=== PATIENT | female | born 1975 | race Caucasian/White ===

== ENCOUNTER → 2017-01-18 | Outpatient (CLI) | payer OTHER ==
[~2017-01-18] MED LIST: INSPMPNVLG
--- NOTE | 2017-01-21 13:17 | MAMMOGRAPHY REPORT ---
BILATERAL DIGITAL SCREENING MAMMOGRAM TOMOSYNTHESIS WITH CAD: 01/18/2017 CLINICAL HISTORY: Routine screening. Baseline exam. TECHNIQUE: Breast tomosynthesis in addition to standard 2D mammography was performed. Current study was also evaluated with a Computer Aided Detection (CAD) system. COMPARISON: No prior exams were available for comparison. BREAST COMPOSITION: There are scattered areas of fibroglandular density in both breasts. FINDINGS: No suspicious masses, calcifications, or areas of architectural distortion are noted in ei ther breast. Asymmetry within the right lateral posterior breast on the cc view has the appearance o f normal fibroglandular tissue on the tomosynthesis images. IMPRESSION: ACR BI-RADS CATEGORY 2: BENIGN There is no mammographic evidence of malignancy. A 1 year screening mammogram is recommended. The pa tient will receive written notification of the results. Approximately 10% of breast cancers are not detected with mammography. A negative mammographic report should not delay biopsy if a clinically suggestive mass is present. Avelina Amor M.D. ah/:01/20/2017 14:45:46 Union Representative: Radha PARRA(Latha)(Marty), [facility] letter sent: Normal 1/2 BI-RADS Code: ACR BI-RADS Category 2: Benign
== END | disposition home or self-care (01) ==
LOC: C.MAMM 13:14
PROVIDERS: ATTEND Physician Assistant Medical
DX: Z12.31 Encounter for screening mammogram for malignant neoplasm of breast (principal)

== ENCOUNTER 2024-04-21 09:09 | Inpatient (IN) ==
[2024-04-21] MEDS: KETOROLAC TROMETHAMINE 15 MG/ML VIAL IV STA (09:35)
[2024-04-21] MEDS: ACETAMINOPHEN 1,000 MG/100 ML VIAL IV STA (09:35)
[2024-04-21] MEDS: ONDANSETRON INJ 2 MG/ML 2 ML VIAL IV STA ×2 (09:36→11:03)
[2024-04-21] MEDS: SODIUM CHLORIDE 0.9% 500 ML IV STA (09:36)
--- NOTE | 2024-04-21 09:53 | Emergency Department Note ---
Impression & Plan Acute left flank pain, UTI (urinary tract infection), Hydronephrosis, Vomiting, Leukocytosis ED Provider Note NAME: DYLLAN CASTILLO AGE: 48 SEX: F : 1975 ARRIVES VIA: Walk-In INFORMANT: [Patient] ED PROVIDER(S): [Geremias Barnhart MD] CHIEF COMPLAINT: Abdominal and flank pain HISTORY OF PRESENT ILLNESS: The patient is a 48-year-old female who presents to the ER with left side abdominal discomfort that began 2 days ago. The pain initially seemed to be in the left buttock and the left lower quadrant but then in the last 12 or so hours moved to the left flank. The pain was initially colicky but now is constant. The pain is worse to lie flat, better when she stands. The patient did have some nausea, no vomiting. There has been no diarrhea. She has had some urinary frequency/urgency but no burning or blood noticed in the urine. There has been no cough or congestion, no fever no chills. She did not fall or suffer trauma. The patient went to urgent care. There was some blood in the urine, she was referred to the ER. Of note, the patient has passed 1 previous kidney stone. PMHx/PSHx/Social Hx: See Below PHYSICAL EXAM: GENERAL: Patient is in no acute distress. Standing in the room. HEENT: No acute trauma, normocephalic atraumatic, mucous membranes moist, no nasal congestion. NECK: No stridor, no adenopathy, no meningismus, trachea is midline. LUNGS: Clear to auscultation bilaterally, no wheeze, no rhonchi, breath sounds equal. HEART: Without murmurs gallops or rubs, regular rate and rhythm. ABDOMEN: Soft, mildly tender in the left lower quadrant/pelvis. No distention. EXTREMITIES: No cyanosis, full range of motion of all the joints without pain or difficulty. NEUROLOGIC: Oriented x 3, no acute motor or sensory deficits, no focal weakness. SKIN: No jaundice, no diaphoresis. Back: No flank discomfort to percussion. DIFFERENTIAL DIAGNOSIS: Renal colic, hydronephrosis, diverticulitis, UTI, musculoskeletal pain, among others. EMERGENCY DEPARTMENT PROCEDURES: MEDICAL DECISION MAKING: There is a slight leukocytosis, this could be consistent with her pain or possibly infection. There was a normal hemoglobin and platelet count. No renal failure or significant electrolyte abnormality. No concerning liver enzyme elevation. No evidence for pancreatitis. testing was negative. Urinalysis showed findings of infection. Abdominal and pelvis CT shows a 4 mm distal left ureteral stone with hydronephrosis. On exam, the patient appeared uncomfortable. She was complaining of left flank pain. The patient received IV Tylenol and IV Toradol. She was given oral Flomax and IV saline. She received IV Zofran. Despite this regimen, she was still having pain. She received IV morphine for additional pain control however, she began vomiting. She was given additional Zofran and IV Phenergan. She received IV Dilaudid for pain control. The patient was given IV ceftriaxone as antibiotic coverage. The patient is having significant discomfort in the left flank. She is vomiting. Her pain is not controlled well here in the ED, she has a left renal stone as well as a potential UTI--I do think a hospital stay is warranted. I spoke with the patient and case management, I did speak with the on-call hospitalist. I did speak with urology. Prior/Outside records/notes reviewed: Today's outpatient urgent care notes describing her presentation, the blood in the urine and the referral to the ED Imaging/x-ray results per my interpretation: Chronic Medical/Social conditions affecting care: None Care/Management discussed with: Urology-Dr. Petersen. Case management and the on-call hospitalist. Level of care consideration(s): After review of the information above and other included data: --I believe the patient requires escalation of care to admission DISPOSITION: Admission Past Med/Surg History Problem List (Updated 04/21/24 @ 17:25 by Geremias Barnhart MD) Leukocytosis (Acute) Vomiting (Acute) Hydronephrosis (Acute) UTI (urinary tract infection) (Acute) Acute left flank pain (Acute) Encounter for pre-operative examination Acute flank pain Left ureteral calculus UTI (urinary tract infection) Hydroureteronephrosis Family history of osteoporosis Vitamin D deficiency Dyslipidemia Pelvic pain Fibroid, uterine Medical History Anemia T2DM (type 2 diabetes mellitus) History of multiple miscarriages History of renal stone Migraine Hx of ovarian cyst Surgical History H/O dilation and curettage History of cholecystectomy History of ovarian cystectomy History of tooth extraction Family History Father Diverticulitis Hypertension Mother Rheumatoid arthritis Sister No problems noted. 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 Feels Safe at Home: Yes Childhood Exposure to Second-Hand Smoke: No Diet: regular Diet Comment: regular caffeine: No during the past year weight has: decreased > 10 lbs Dental Care, Regularly: Yes Physical Activity Frequency: 3-4 Times per Week Seatbelt Use: always Sunscreen Use: Yes Assistive Devices: Contacts Allergies Allergies Allergy/AdvReac Type Severity Reaction Status Date / Time Penicillins Allergy Unknown as a child Verified 04/21/24 15:08 Sulfa (Sulfonamide Allergy Rash Verified 04/21/24 15:08 Antibiotics) Home Meds Home Medications Medication Instructions Recorded Confirmed inositol 500 mg tablet 500 mg PO DAILY 07/12/19 04/21/24 loratadine 10 mg tablet (Claritin) 10 mg PO DAILY 07/12/19 04/21/24 vitamin B complex [B 1 tab PO DAILY 07/21/19 04/21/24 Complex-Vitamin B12] cholecalciferol (vitamin D3) 125 125 mcg PO DAILY 01/28/23 04/21/24 mcg (5,000 unit) capsule folic acid 400 mcg tablet 0.4 mg PO DAILY 02/06/24 04/21/24 Previous Rx's Medication Instructions Recorded insulin degludec 100 unit/mL (3 15 unit (0.15 mL) subcut DAILY #15 05/28/23 mL) subcutaneous pen (Tresiba mL FlexTouch U-100 insulin) metformin 1,000 mg tablet 1,000 mg PO BID #180 tabs 05/28/23 blood-glucose sensor (FreeStyle #6 ea 09/16/23 Kimberli 3 Sensor device) flash glucose sensor (FreeStyle #6 ea 09/25/23 Kimberli 14 Day Sensor kit) semaglutide 2 mg/dose (8 mg/3 mL) 2 mg (0.75 mL) subcut ONCE #3 mL 01/28/24 subcutaneous pen injector (Ozempic) norgestrel 0.3 mg-ethinyl 1 tab PO DAILY #84 tabs 03/19/24 estradiol 30 mcg tablet (Dale (28)) Results & Data (ED) Vital Signs Vital Signs - 24 hr 04/21/24 09:12 04/21/24 10:22 04/21/24 12:10 Temperature 36.8 C Temperature Source Temporal Artery Scan Pulse Rate 92 H Pulse Rate [Left] 67 Pulse Rhythm [Left] Regular Pulse Strength [Left] Normal Respiratory Rate 19 19 17 Respiratory Effort / Characteristics Non-Labored Spontaneous Non-Labored Non-Labored Respiratory Depth Normal Normal Normal Respiratory Pattern Regular Regular Blood Pressure 157/96 H Blood Pressure [Left Arm] 129/73 Blood Pressure Mean 116 Blood Pressure Mean [Left Arm] 91 Blood Pressure Position Sitting Blood Pressure Position [Left Arm] Sitting Pulse Oximetry 100 98 98 Oxygen Delivery Method Room Air Room Air Room Air Sepsis Recent Fever Within 48 Hours No Sepsis New/Unexplained Change in Mental Status No Sepsis Action Taken by Nursing No Action Required 04/21/24 12:24 Temperature 36.5 C Temperature Source Temporal Artery Scan Pulse Rate Pulse Rate [Left] 98 H Pulse Rhythm [Left] Regular Pulse Strength [Left] Normal Respiratory Rate 19 Respiratory Effort / Characteristics Non-Labored Respiratory Depth Normal Respiratory Pattern Regular Blood Pressure Blood Pressure [Left Arm] 140/77 Blood Pressure Mean Blood Pressure Mean [Left Arm] 98 Blood Pressure Position Blood Pressure Position [Left Arm] Sitting Pulse Oximetry 98 Oxygen Delivery Method Room Air Sepsis Recent Fever Within 48 Hours Sepsis New/Unexplained Change in Mental Status Sepsis Action Taken by [facility] Medications Current Medication List: was personally reviewed by me Laboratory Data Attestation: I reviewed the patient's lab results. 04/21/24 09:30 04/21/24 09:30 Lab Results 04/21/24 04/21/24 Range/Units 09:30 10:28 WBC 11.95 H (4.8-10.8) K/ul RBC 4.82 (4.20-5.40) M/uL Hgb 12.8 (12.0-16.0) g/dl Hct 38.6 (37.0-47.0) % MCV 80.1 (80.0-100.0) fL MCH 26.6 (25.0-34.0) pg MCHC 33.2 (32.0-36.0) g/dL RDW Std Deviation 47.5 H (36.4-46.3) fL RDW Coeff of Rohan 16.2 H (11.5-14.5) % Plt Count 382 (130-400) K/uL MPV 8.7 L (9.4-12.4) fL Immature Gran % (Auto) 0.3 % Neut % (Auto) 77.4 % Lymph % (Auto) 17.0 % [place] % (Auto) 4.7 % Eos % (Auto) 0.3 % Baso % (Auto) 0.3 % Neut # (Auto) 9.26 H (1.40-6.50) K/uL Lymph # (Auto) 2.03 (1.20-3.40) K/uL [place] # (Auto) 0.56 (0.11-0.59) K/uL Eos # (Auto) 0.03 (0.00-0.50) K/uL Baso # (Auto) 0.04 (0.00-0.20) K/uL Immature Gran # (Auto) 0.03 (0.01-0.20) K/uL Sodium 134 L (136-145) mmol/L Potassium 3.7 (3.5-5.1) mmol/L Chloride 101 (98-107) mmol/L Carbon Dioxide 21 (21-32) mmol/L Anion Gap 12 H (3-11) BUN 13 (6-23) mg/dl Creatinine 0.96 (0.6-1.2) mg/dl Est Cr Clr Drug Dosing 66.4 ml/min Est GFR ( Amer) 80.5 ml/min Est GFR (Non-Af Amer) 69.4 ml/min BUN/Creatinine Ratio 13.5 (10-20) Glucose 93 (70-99(Fasting)) mg/dl Calcium 8.8 (8.6-10.3) mg/dl Total Bilirubin 0.3 (0.2-1.0) mg/dl AST 13 (13-39) U/L ALT 10 (7-52) U/L Alkaline Phosphatase 39 (34-104) U/L Total Protein 7.0 (6.0-8.3) gm/dl Albumin 4.2 (3.4-5.0) gm/dl Globulin 2.8 (2.5-4.0) gm/dl Albumin/Globulin Ratio 1.5 (0.9-2) Lipase 28 (11-82) U/L HCG, Qual Negative (Negative) Urine Color Yellow Urine Appearance Cloudy A (Clear) Urine pH 5.5 (4.5-7.5) Ur Specific [place] 1.028 (1.000-1.030) Urine Protein Trace H (Negative) Urine Glucose (UA) Negative (Negative) Urine Ketones 1+ H (Negative) Urine Blood 3+ H (Negative) Urine Nitrite Negative (Negative) Urine Bilirubin Negative (Negative) Urine Urobilinogen Negative (Negative) Ur Leukocyte Esterase 2+ H (Negative) Urine WBC (Auto) 21-50 H (0-5) /hpf Urine RBC (Auto) 11-20 H (0-2) /hpf U Hyaline Cast (Auto) 0-2 (0-2) /lpf U Epithel Cells (Auto) 6-10 H (0-2) /hpf Urine Bacteria (Auto) 2+ H (None Seen) Urine Mucus Present A (None Prsent) Administered Medications Acetaminophen (Acetaminophen 325 Mg Tab) 650 mg PO Q6H AMY Stop: 05/21/24 13:59 Last Admin: 04/21/24 16:57 Dose: Not Given Documented By: MARQUIS Lactated Ringer's (Lr) 1,000 mls @ 100 mls/hr IV .Q10H AMY Stop: 04/22/24 08:59 Last Admin: 04/21/24 17:07 Dose: 100 mls/hr Documented By: MARQUIS Lactated Ringer's (Lr) 1,000 mls @ 15 mls/hr IV .Q24H AMY Stop: 05/21/24 14:44 Last Infusion: 04/21/24 15:26 Dose: Infused Documented By: Admin: 04/21/24 15:18 Dose: 15 mls/hr Documented By: NICCI Insulin Aspart (Insulin Aspart Per Unit Charge) 0 units SC Q6 AMY Stop: 05/21/24 12:44 Last Admin: 04/21/24 14:06 Dose: Not Given Documented By: MARQUIS Discontinued Medications Hydromorphone HCl (Hydromorphone Inj 0.5 Mg/0.5 Ml Syr) 0.5 mg IV NOW STA Stop: 04/21/24 12:17 Last Admin: 04/21/24 12:30 Dose: 0.5 mg Documented By: [facility] Sodium Chloride (Nss) 500 mls @ 999 mls/hr IV .Q31M STA Stop: 04/21/24 09:54 Last Infusion: 04/21/24 10:07 Dose: Infused Documented By: Admin: 04/21/24 09:36 Dose: 999 mls/hr Documented By: [facility] Acetaminophen (Ofirmev) 1,000 mg in 100 mls @ 400 mls/hr IV NOW STA Stop: 04/21/24 09:38 Last Infusion: 04/21/24 09:50 Dose: Infused Documented By: Admin: 04/21/24 09:35 Dose: 400 mls/hr Documented By: [facility] Sodium Chloride (Nss) 500 mls @ 999 mls/hr IV .Q31M ONE Stop: 04/21/24 11:51 Last Infusion: 04/21/24 12:05 Dose: Infused Documented By: Admin: 04/21/24 11:32 Dose: 999 mls/hr Documented By: [facility] Ceftriaxone Sodium (Rocephin) 2,000 mg in 50 mls @ 100 mls/hr IV NOW STA Stop: 04/21/24 11:50 Last Infusion: 04/21/24 12:02 Dose: Infused Documented By: Admin: 04/21/24 11:32 Dose: 100 mls/hr Documented By: [facility] Promethazine HCl (Phenergan) 12.5 mg in 50.5 mls @ 202 mls/hr IV NOW STA Stop: 04/21/24 12:30 Last Infusion: 04/21/24 12:45 Dose: Infused Documented By: Admin: 04/21/24 12:30 Dose: 202 mls/hr Documented By: [facility] Ketorolac Tromethamine (Ketorolac Tromethamine 15 Mg/Ml Vial) 15 mg IV NOW STA Stop: 04/21/24 09:25 Last Admin: 04/21/24 09:35 Dose: 15 mg Documented By: [place] Morphine Sulfate (Morphine Sulfate 4 Mg/Ml 1 Ml Carp\Vial) 4 mg IV NOW STA Stop: 04/21/24 10:39 Last Admin: 04/21/24 11:03 Dose: 4 mg Documented By: [facility] Ondansetron HCl (Ondansetron Inj 2 Mg/Ml 2 Ml Vial) 4 mg IV NOW STA Stop: 04/21/24 09:25 Last Admin: 04/21/24 09:36 Dose: 4 mg Documented By: [place] Ondansetron HCl (Ondansetron Inj 2 Mg/Ml 2 Ml Vial) 4 mg IV NOW STA Stop: 04/21/24 12:04 Last Admin: 04/21/24 11:03 Dose: 4 mg Documented By: [place] Tamsulosin HCl (Tamsulosin Hcl 0.4 Mg Cap) 0.4 mg PO NOW ONE Stop: 04/21/24 10:36 Last Admin: 04/21/24 11:04 Dose: 0.4 mg Documented By: MARIO Imaging Data Radiologist's Impression: Abdomen Fluoroscopy 04/21/24 00:00 FL KUB CLINICAL HISTORY: LEFT STENT COMPARISON STUDY: CT of the abdomen and pelvis performed earlier today. FLUOROSCOPY TIME: 4 seconds. Ka,r: 0.70 mGy FLUOROSCOPIC IMAGES: 1 FINDINGS: Fluoroscopy was provided during left ureteral stent placement. The proximal aspect of the stent projects over the left collecting system. IMPRESSION: Fluoroscopy provided during left ureteral stent placement. ACT 112: Negative or not required by law. Electronically signed by: Jose Garcia M.D. 04/21/2024 4:15 PM Abdomen/Pelvis CT 04/21/24 09:[address] WITHOUT CONTRAST CT DOSE: 831.21 mGy.cm HISTORY: Acute left-sided flank pain left flank pain TECHNIQUE: Multiaxial CT images of the abdomen and pelvis were performed without contrast. A dose lowering technique was utilized adhering to the principles of ALARA. COMPARISON STUDY: ULTRASOUND 02/11/2024 FINDINGS: Clear lung bases. No free air. Unremarkable spleen, pancreas and adrenal glands. Cholecystectomy. A displaced clip is interposed between the right hemidiaphragm and dome of the liver. Unremarkable right kidney. There is mild left-sided hydroureteronephrosis secondary to a 4 mm obstructing calculus of the distal left ureter a few centimeters upstream to the ureterovesicular junction. Decompressed urinary bladder. 4.2 cm cystic focus of the left adnexum. Mild atherosclerosis of the iliac bifurcation. No lymphadenopathy. There is no bowel obstruction or bowel wall thickening. Trace free pelvic fluid. Noninflamed appendix. Unremarkable soft tissues. No acute fracture. IMPRESSION: 1. Mild left-sided hydroureteronephrosis secondary to an obstructing 4 mm distal left ureteral calculus. 2. No bowel obstruction or bowel wall thickening. 3. Cholecystectomy. ACT 112: Negative or not required by law. The above report was generated using voice recognition software. It may contain grammatical, syntax or spelling errors. Electronically signed by: Dimitris Garza M.D. 04/21/2024 10:21 AM Discharge Plan Visit Data Chief Complaint: Abdominal Pain Stated Complaint: L SIDE ABD AND FLANK PAIN, REF BY URGENT CARE ED Provider: Geremias Barnhart Discharge Problem: Acute left flank pain, UTI (urinary tract infection), Hydronephrosis, Vomiting, Leukocytosis Patient Disposition: Admitted As Inpatient Condition: Fair Discharge Instructions Interventions: ED Discharge Assessment Last Done: 04/21/24 13:00 Discharge Problem: UTI (urinary tract infection) Qualifiers: Urinary tract infection type: acute cystitis Hematuria presence: without hematuria Qualified Code(s): N30.00 - Acute cystitis without hematuria Hydronephrosis Qualifiers: Hydronephrosis type: with renal calculous obstruction Qualified Code(s): N13.2 - Hydronephrosis with renal and ureteral calculous obstruction Vomiting Qualifiers: Vomiting type: unspecified Nausea presence: with nausea Qualified Code(s): R 11.2 - Nausea with vomiting, unspecified Leukocytosis Qualifiers: Leukocytosis type: unspecified Qualified Code(s): D72.829 - Elevated white blood cell count, unspecified
[2024-04-21 09:54] LABS: Basophils # (auto) 0.04 K/uL (0.00-0.20); Basophils % (auto) 0.3 %; Eosinophils # (auto) 0.03 K/uL (0.00-0.50); Eosinophils % (auto) 0.3 %; Hematocrit (blood only) 38.6 % (37.0-47.0); Hemoglobin 12.8 g/dl (12.0-16.0); Immature Granulocytes # (auto) 0.03 K/uL (0.01-0.20); Immature Granulocytes % (auto) 0.3 %; Lymphocytes # (auto) 2.03 K/uL (1.20-3.40); Mean Corpuscular Hemoglobin 26.6 pg (25.0-34.0); Mean Corpuscular Hgb Conc 33.2 g/dL (32.0-36.0); Mean Corpuscular Volume 80.1 fL (80.0-100.0); Mean Platelet Volume 8.7 fL (9.4-12.4); Monocytes # (auto) 0.56 K/uL (0.11-0.59); Monocytes % (auto) 4.7 %; Neutrophils # (auto) 9.26 K/uL (1.40-6.50); Neutrophils % (auto) 77.4 %; Platelet Count 382 K/uL (130-400); RDW Coefficient of Variation 16.2 % (11.5-14.5); RDW Standard Deviation 47.5 fL (36.4-46.3); Red Blood Count 4.82 M/uL (4.20-5.40); White Blood Count 11.95 K/ul (4.8-10.8)
[2024-04-21 10:10] LABS: Pregnancy Test, Serum Negative (Negative)
[2024-04-21 10:17] LABS: Albumin Globulin Ratio 1.5 (0.9-2); Albumin Level 4.2 gm/dl (3.4-5.0); BUN Creatinine Ratio 13.5 (10-20); Bilirubin,Total 0.3 mg/dl (0.2-1.0); Calcium 8.8 mg/dl (8.6-10.3); Creatinine Clr Calc Pharmacy 66.4 ml/min; Est GFR (African American) 80.5 ml/min; Est GFR (Non-African American) 69.4 ml/min; Globulin 2.8 gm/dl (2.5-4.0); Potassium 3.7 mmol/L (3.5-5.1)
--- NOTE | 2024-04-21 10:23 | CT Scan Report ---
ABDOMEN AND PELVIS CT WITHOUT CONTRAST CT DOSE: 831.21 mGy.cm HISTORY: Acute left-sided flank pain left flank pain TECHNIQUE: Multiaxial CT images of the abdomen and pelvis were performed without contrast. A dose lo wering technique was utilized adhering to the principles of ALARA. COMPARISON STUDY: ULTRASOUND 02/11/2024 FINDINGS: Clear lung bases. No free air. Unremarkable spleen, pancreas and adrenal glands. Cholecyste ctomy. A displaced clip is interposed between the right hemidiaphragm and dome of the liver. Unremarkable right kidney. There is mild left-sided hydroureteronephrosis secondary to a 4 mm obstruc ting calculus of the distal left ureter a few centimeters upstream to the ureterovesicular junction. Decompressed urinary bladder. 4.2 cm cystic focus of the left adnexum. Mild atherosclerosis of the il iac bifurcation. No lymphadenopathy. There is no bowel obstruction or bowel wall thickening. Trace free pelvic fluid. Noninflamed appendix . Unremarkable soft tissues. No acute fracture. IMPRESSION: 1. Mild left-sided hydroureteronephrosis secondary to an obstructing 4 mm distal left ureteral calcul us. 2. No bowel obstruction or bowel wall thickening. 3. Cholecystectomy. ACT 112: Negative or not required by law. The above report was generated using voice recognition software. It may contain grammatical, syntax o r spelling errors. Electronically signed by: Dimitris Garza M.D. 04/21/2024 10:21 AM
[2024-04-21] MEDS ORDERED: MoRPHine SULFATE 4 MG/ML 1 ML CARP\\VIAL IV PRN (10:38)
[2024-04-21 10:56] LABS: Appearance Urine Cloudy (Clear); Bacteria Urine Automated 2+ (None Seen); Bilirubin Urine Negative (Negative); Blood Urine 3+ (Negative); Cast Urine Automated 0-2 /lpf (0-2); Color Urine Yellow; Glucose Urine UA Negative (Negative); Ketones Urine 1+ (Negative); Leukocyte Esterase Urine 2+ (Negative); Mucus Urine Present (None Prsent); Nitrite Urine Negative (Negative); Protein Urine Trace (Negative); Specific Gravity Urine 1.028 (1.000-1.030); Urobilinogen Urine Negative (Negative); WBC Urine Automated 21-50 /hpf (0-5); pH Urine 5.5 (4.5-7.5)
[2024-04-21] MEDS: MoRPHine SULFATE 4 MG/ML 1 ML CARP\\VIAL IV STA (11:03)
[2024-04-21] MEDS: TAMSULOSIN HCL 0.4 MG CAP PO ONE (11:04)
[2024-04-21] MEDS: cefTRIAXone SODIUM 2,000 MG/50 ML BAG IV STA (11:32)
[2024-04-21] MEDS: SODIUM CHLORIDE 0.9% 500 ML IV ONE (11:32)
[2024-04-21] MEDS: HYDROmorphone INJ 0.5 MG/0.5 ML SYR IV STA (12:30)
[2024-04-21] MEDS: PROMETHAZINE 12.5 MG/50.5 ML BAG IV STA (12:30)
[2024-04-21] MEDS ORDERED: NALOXONE HCL 0.4 MG/1 ML VIAL/CARP IV PRN (12:36)
[2024-04-21] MEDS ORDERED: KETOROLAC TROMETHAMINE 15 MG/ML VIAL IV PRN (12:36)
[2024-04-21] MEDS ORDERED: HYDROmorphone INJ 0.5 MG/0.5 ML SYR IV PRN (12:36)
--- NOTE | 2024-04-21 12:38 | History & Physical Report ---
Date of Service April 21, 2024 Assessment & Plan (1) Hydroureteronephrosis: Plan: Admit to med telemetry pulse oximetry Currently stable nontoxic-appearing Presented to the ED with progressive left-sided flank plain with radiation to the left abdomen/groin and associated increased urinary frequency UA does appear to be infected CT of the abdomen pelvis without contrast shows mild left-sided hydroureteronephrosis secondary to obstructing 4 mm distal left ureteral calculus Renal function is stable Patient has ongoing symptoms despite multiple doses of IV morphine and a dose IV Dilaudid and Toradol Will consult urology to continue monitoring in case ureteral stent placement is required tomorrow Will continue pain control with scheduled Tylenol, prn toradol for mild-mod pain, and prn Dilaudid for severe pain Will continue daily Flomax Continue IV hydration moving forward until stone is passed, urine strainer has been ordered Clear liquids for now, will touch base with urology later with plans for ureteral stent placement tomorrow will make n.p.o. at midnight Bilateral SCDs for DVT prophylaxis AM CBC, CMP, mag (2) UTI (urinary tract infection): Plan: UA appears infected, patient has been experiencing increased urinary frequency over the past 48 hours No previous history of resistant UTIs, will continue ceftriaxone for now to cover both possibly infected stone and left-sided pyelonephritis due to left CVA tenderness Suspect left-sided CVA tenderness is more likely to be from her stone and left-sided hydronephrosis but cannot rule out pyelonephritis at this time Follow urine cultures (3) T2DM (type 2 diabetes mellitus): Plan: Hold metformin Normally takes 15 units SQ degludec in the a.m., will reduce to 5 units subcu Lantus twice daily for now Start conservative regimen of CF of 50 and CR of 15 every 6 hours and serum trauma she will be eating while admitted Adjust regimen as needed Plan The patient was discussed with Dr. Montaño at time of the admission History of Present Illness Chief Complaint: Abdominal pain/flank pain, Primary Care Provider: Candice Amin MD Pippa is a 48-year-old female with a past medical history significant for DM type II, dyslipidemia, and previous kidney stones who presented to [facility] ED on 04/21/2024 with progressive left-sided flank pain radiating to the left groin and increased urinary frequency. She remained stable in the ED. Labs were significant for leukocytosis of 11 with neutrophil predominance of 9, anion gap of 12 with bicarb within normal limits, and UA with cloudy appearance, trace protein, 1+ ketones, 3+ blood, 2+ leukocyte esterase, 20-50 WBC, 11-20 RBC, 6-10 epithelial cells, 2+ bacteria. CT of the abdomen pelvis without contrast notes mild left-sided hydroureteronephrosis secondary to an obstructing 4 mm distal left ureteral calculus. Otherwise CT was without other acute findings. While in the ED the patient received 1 L normal saline, 0.4 mg tamsulosin, 2 doses of 4 mg IV morphine, 15 mg IV Toradol, 0.5 mg IV Dilaudid, 1 g IV Tylenol, a dose of ceftriaxone, 2 doses 4 mg IV Zofran, and 12.5 mg promethazine without significant improvement of symptoms. Patient was lying in bed on her right side in the position at the time of my exam. Confirms that her symptoms started approximate 48 hours ago with left lower abdomen/groin pain has progressed to left-sided flank pain as well with increased urinary frequency. Did have nausea but without vomiting prior to arrival to the ED. Confirm she has a previous history of kidney stones but is normally been able to pass them on her own. Symptoms are currently under control if she remains still, she notices symptoms progressed with ambulation to and from the bathroom. No recent fever or chills, chest pain, shortness of breath, cough, hematemesis, diarrhea, or recent trauma. Took 3 tabs of 200 mg ibuprofen around midnight early this morning prior to ED arrival. Please refer to Dr. Montaño's attestation for any changes to the treatment plan Allergies Allergy/AdvReac Type Severity Reaction Status Date / Time Penicillins Allergy Unknown UNKNOWN Verified 02/18/24 08:44 Sulfa (Sulfonamide Allergy Rash Verified 04/21/24 11:30 Antibiotics) Home Medications Medication Instructions Recorded Confirmed Type inositol 500 mg tablet 500 mg PO DAILY 07/12/19 02/18/24 History loratadine 10 mg tablet (Claritin) 10 mg PO DAILY 07/12/19 02/18/24 History vitamin B complex [B PO DAILY 07/21/19 02/18/24 History Complex-Vitamin B12] cholecalciferol (vitamin D3) 125 125 mcg PO DAILY 01/28/23 02/18/24 History mcg (5,000 unit) capsule insulin degludec 100 unit/mL (3 15 unit (0.15 mL) subcut DAILY #15 05/28/23 02/18/24 Rx mL) subcutaneous pen (Tresiba mL FlexTouch U-100 insulin) metformin 1,000 mg tablet 1,000 mg PO BID #180 tabs 05/28/23 02/18/24 Rx blood-glucose sensor (FreeStyle #6 ea 09/16/23 02/18/24 Rx Kimberli 3 Sensor device) flash glucose sensor (FreeStyle #6 ea 09/25/23 02/18/24 Rx Kimberli 14 Day Sensor kit) semaglutide 2 mg/dose (8 mg/3 mL) 2 mg (0.75 mL) subcut ONCE #3 mL 01/28/24 02/18/24 Rx subcutaneous pen injector (Ozempic) folic acid 400 mcg tablet 0.4 mg PO DAILY 02/06/24 02/18/24 History norgestrel 0.3 mg-ethinyl 1 tab PO DAILY #84 tabs 03/19/24 Rx estradiol 30 mcg tablet (Dale (28)) Past Med/Surg History Problem List (Updated 04/21/24 @ 12:28 by Abhay Avina PA-C) UTI (urinary tract infection) Hydroureteronephrosis Anemia Family history of osteoporosis Vitamin D deficiency Dyslipidemia Pelvic pain Fibroid, uterine T2DM (type 2 diabetes mellitus) (Chronic) Medical History History of multiple miscarriages History of renal stone Migraine Hx of ovarian cyst Surgical History H/O dilation and curettage History of cholecystectomy History of ovarian cystectomy History of tooth extraction Family History Father Diverticulitis Hypertension Mother Rheumatoid arthritis Sister No problems noted. 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 Feels Safe at Home: Yes Childhood Exposure to Second-Hand Smoke: No Diet: regular Diet Comment: regular caffeine: No during the past year weight has: decreased > 10 lbs Dental Care, Regularly: Yes Physical Activity Frequency: 3-4 Times per Week Seatbelt Use: always Sunscreen Use: Yes Assistive Devices: Contacts Physical Exam Physical Exam: Physical Exam: General: In no acute distress, stated age, ill-appearing but nontoxic HEENT: Normocephalic, atraumatic, no scleral icterus, pupils around round, symmetrical, and reactive to light, dry mucus membranes, trachea midline, no thyromegaly Chest/Pulm: No respiratory distress, symmetrical chest expansion, clear breath sounds throughout Cardiac: RRR, no murmurs noted Abdomen: Negative for ascites and bruising, normoactive bowel sounds, soft, minimally tender to palpation left lower quadrant otherwise nontender : Positive left CVA tenderness negative right Musculoskeletal: Symmetrical and without signs of acute trauma, upper and lower extremities with full ROM, no atrophy, spasticity, or flaccidity Extremities: Radial, dorsalis pedis, and posterior tibial pulses are intact and symmetrical, no edema noted in the BL LE's Skin: Warm, dry, no rashes , lesions, or scars noted Neuro: Alert and oriented to person, place, month, year, and president, no focal defects, no tremors noted Psych: No acute distress, fatigued but otherwise calm and cooperative during the exam Results & Data Results & Data Vital Signs (Past 12 Hours) Vital Signs Temp Pulse Pulse Resp BP BP Pulse Ox 04/21/24 12:10 67 17 129/73 98 04/21/24 10:22 19 98 04/21/24 09:12 36.8 C 92 H 19 157/96 H 100 O2 Del Method 04/21/24 12:10 Room Air 04/21/24 10:22 Room Air 04/21/24 09:12 Room Air Laboratory Results Abnormal lab results 04/21/24 04/21/24 Range/Units 09:30 10:28 WBC 11.95 H (4.8-10.8) K/ul RDW Std Deviation 47.5 H (36.4-46.3) fL RDW Coeff of Rohan 16.2 H (11.5-14.5) % MPV 8.7 L (9.4-12.4) fL Neut # (Auto) 9.26 H (1.40-6.50) K/uL Sodium 134 L (136-145) mmol/L Anion Gap 12 H (3-11) Urine Appearance Cloudy A (Clear) Urine Protein Trace H (Negative) Urine Ketones 1+ H (Negative) Urine Blood 3+ H (Negative) Ur Leukocyte Esterase 2+ H (Negative) Urine WBC (Auto) 21-50 H (0-5) /hpf Urine RBC (Auto) 11-20 H (0-2) /hpf U Epithel Cells (Auto) 6-10 H (0-2) /hpf Urine Bacteria (Auto) 2+ H (None Seen) Urine Mucus Present A (None Prsent) Diagnostic Findings Abdomen/Pelvis CT 04/21/24 09:[address] WITHOUT CONTRAST CT DOSE: 831.21 mGy.cm HISTORY: Acute left-sided flank pain left flank pain TECHNIQUE: Multiaxial CT images of the abdomen and pelvis were performed without contrast. A dose lowering technique was utilized adhering to the principles of ALARA. COMPARISON STUDY: ULTRASOUND 02/11/2024 FINDINGS: Clear lung bases. No free air. Unremarkable spleen, pancreas and adrenal glands. Cholecystectomy. A displaced clip is interposed between the right hemidiaphragm and dome of the liver. Unremarkable right kidney. There is mild left-sided hydroureteronephrosis secondary to a 4 mm obstructing calculus of the distal left ureter a few centimeters upstream to the ureterovesicular junction. Decompressed urinary bladder. 4.2 cm cystic focus of the left adnexum. Mild atherosclerosis of the iliac bifurcation. No lymphadenopathy. There is no bowel obstruction or bowel wall thickening. Trace free pelvic fluid. Noninflamed appendix. Unremarkable soft tissues. No acute fracture. IMPRESSION: 1. Mild left-sided hydroureteronephrosis secondary to an obstructing 4 mm distal left ureteral calculus. 2. No bowel obstruction or bowel wall thickening. 3. Cholecystectomy. ACT 112: Negative or not required by law. The above report was generated using voice recognition software. It may contain grammatical, syntax or spelling errors. Electronically signed by: Dimitris Garza M.D. 04/21/2024 10:21 AM Code Status & VTE Plan Code Status Full code Supervising Physician Co-Signing Physician Notes Patient seen and examined, chart reviewed, case discussed with Abhay Avina PA-C and I agree with the assessment and plan as above except as otherwise noted Labs and images reviewed 4 mm obstructing stone with hydro-. Incomplete pain control, unable to be discharged home. Suspected stone associated UTI for which she is covered with Rocephin. Urology consulted. No BONNIE. Multimodal pain control. Agree with above. PG Care Time/CCT Total # of Minutes Spent Total Time Spent with Patient: Total time spent is greater than 50% in coordination of care (as documented) at patient's floor/unit and/or counseling patient: Coding [place] [address] INT INP/OBS CARE 2/55MIN Patient Type Established Medical Decision Making Moderate Complexity Diagnoses Hydroureteronephrosis N13.30 UTI (urinary tract infection) N39.0 Type 2 diabetes mellitus without complication, with long-term current use of insulin E11.9; Z79.4 Diabetes mellitus complication status: without complication Diabetes mellitus intermission coordinator insulin use: with intermission coordinator use (3) T2DM (type 2 diabetes mellitus) Diabetes mellitus complication status: without complication Diabetes mellitus penitentiary insulin use: with penitentiary use Qualified Code(s): E11.9 - Type 2 diabetes mellitus without complications; Z79.4 - longterm (current) use of insulin
[2024-04-21] MEDS ORDERED: GLUCAGON FOR INJ 1 MG VIAL SQ PRN (12:45)
[2024-04-21] MEDS ORDERED: GLUCOSE 10 TAB/TUBE PO PRN (12:45)
[2024-04-21] MEDS ORDERED: GLUCOSE 40% GEL 15 GM TUBE PO PRN (12:45)
[2024-04-21] MEDS ORDERED: CARBOHYDRATES FOR HYPOGLYCEMIA PO PRN (12:45)
[2024-04-21] MEDS ORDERED: DEXTROSE 50% 50 ML SYRINGE IV PRN (12:45)
--- NOTE | 2024-04-21 14:02 | Urology Consultation ---
Date of Consultation April 21, 2024 Assessment & Plan (1) Left ureteral calculus: (2) Hydroureteronephrosis: (3) Acute flank pain: (4) UTI (urinary tract infection): Plan 48 yo/F admitted with severe left sided pain and concern for infection in the setting of an obstructing 4 mm distal left ureteral stone. Afebrile with stable vitals. Nontoxic-appearing. Labs showing mild leukocytosis of 11.9 and normal renal function. A urine culture is pending. We discussed options for acute stone management including cystoscopy, stent placement, possible stone treatment. Ureteral stents were discussed as well as postoperative issues and pain management. She is aware a second procedure may be needed for stone treatment. We also discussed trial of passage with max expulsion therapy. Stone passage rates given size and location were reviewed. Risks and benefits of each were discussed. All questions were answered. Given her severe pain and nausea and the concern for infection, will proceed to OR today for cystoscopy, left retrograde pyelogram, left ureteral stent pl acement, possible ureteroscopy/stone treatment depending on findings. Risks and benefits to be reviewed with patient by Dr. Petersen. She received IV ceftriaxone in the ED. Keep NPO. Continue supportive care and pain management as needed. Continue antibiotics and tailor per culture sensitivities. Urology to follow. History of Present Illness Attending Physician: Moose Montaño MD History of Present Illness 48-year-old female with a past medical history significant for DM type II, dyslipidemia, and previous kidney stones who presented to [facility] ED on 04/21/2024 with progressive left-sided flank pain radiating to the left groin and increased urinary frequency. On arrival she was afebrile and hemodynamically stable. Labs with a leukocytosis of 11 and normal renal function. Urinalysis with 3+ blood, 2+ LE, 2050 WBC, 1120 RBC, 610 epithelia l cells, 2+ bacteria. CT abdomen pelvis notable for mild left-sided hydronephrosis secondary to an obstructing 4 mm distal left ureteral stone. ED course: IV fluids, tamsulosin, morphine, Toradol, Dilaudid, Tylenol, ceftriaxone, Zofran, promethazine. She is admitted to medicine service for further management. Patient seen at bedside in the ED. She is awake and resting in bed on arrival. No acute distress. She does report some improvement in pain since receiving Dilaudid. She has had some nausea and vomiting. Denies fever or chills. Denies hematuria or dysuria. She has not had anything to eat or drink since yesterday evening. She does report a history of spontaneous stone passage approximately 25 years ago. Allergies Allergy/AdvReac Type Severity Reaction Status Date / Time Penicillins Allergy Unknown UNKNOWN Verified 02/18/24 08:44 Sulfa (Sulfonamide Allergy Rash Verified 04/21/24 11:30 Antibiotics) Home Medications Medication Instructions Recorded Confirmed Type inositol 500 mg tablet 500 mg PO DAILY 07/12/19 04/21/24 History loratadine 10 mg tablet (Claritin) 10 mg PO DAILY 07/12/19 04/21/24 History vitamin B complex [B 1 tab PO DAILY 07/21/19 04/21/24 History Complex-Vitamin B12] cholecalciferol (vitamin D3) 125 125 mcg PO DAILY 01/28/23 04/21/24 History mcg (5,000 unit) capsule insulin degludec 100 unit/mL (3 15 unit (0.15 mL) subcut DAILY #15 05/28/23 04/21/24 Rx mL) subcutaneous pen (Tresiba mL FlexTouch U-100 insulin) metformin 1,000 mg tablet 1,000 mg PO BID #180 tabs 05/28/23 04/21/24 Rx blood-glucose sensor (FreeStyle #6 ea 09/16/23 02/18/24 Rx Kimberli 3 Sensor device) flash glucose sensor (FreeStyle #6 ea 09/25/23 02/18/24 Rx Kimberli 14 Day Sensor kit) semaglutide 2 mg/dose (8 mg/3 mL) 2 mg (0.75 mL) subcut ONCE #3 mL 01/28/24 04/21/24 Rx subcutaneous pen injector (Ozempic) folic acid 400 mcg tablet 0.4 mg PO DAILY 02/06/24 04/21/24 History norgestrel 0.3 mg-ethinyl 1 tab PO DAILY #84 tabs 03/19/24 04/21/24 Rx estradiol 30 mcg tablet (Dale (28)) Patient History Medical History History of multiple miscarriages History of renal stone Migraine Hx of ovarian cyst Surgical History H/O dilation and curettage History of cholecystectomy History of ovarian cystectomy History of tooth extraction Family History Father Diverticulitis Hypertension Mother Rheumatoid arthritis Sister No problems noted. 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 Feels Safe at Home: Yes Childhood Exposure to Second-Hand Smoke: No Diet: regular Diet Comment: regular caffeine: No during the past year weight has: decreased > 10 lbs Dental Care, Regularly: Yes Physical Activity Frequency: 3-4 Times per Week Seatbelt Use: always Sunscreen Use: Yes Assistive Devices: Contacts Review of Systems Review of Systems: All systems reviewed & are unremarkable except as noted in HPI & below Physical Exam Constitutional: no acute distress and + uncomfortable Neck: normal visual inspection Respiratory: no respiratory distress and no labored breathing Neurologic: awake Psychiatric: A+Ox3, euthymic affect Results & Data Vital Signs (Past 12 Hours) Vital Signs Temp Pulse Pulse Resp BP BP Pulse Ox 04/21/24 12:24 36.5 C 98 H 19 140/77 98 04/21/24 12:10 67 17 129/73 98 04/21/24 10:22 19 98 04/21/24 09:12 36.8 C 92 H 19 157/96 H 100 O2 Del Method 04/21/24 12:24 Room Air 04/21/24 12:10 Room Air 04/21/24 10:22 Room Air 04/21/24 09:12 Room Air PG Care Time/CCT Total # of Minutes Spent Total Time Spent with Patient: Total time spent is greater than 50% in coordination of care (as documented) at patient's floor/unit and/or counseling patient: Coding Level of Care Code 03389 IN/OBS CONSULT LVL 4,60M Diagnoses Left ureteral calculus N20.1 Hydroureteronephrosis N13.30 Acute flank pain R10.9 UTI (urinary tract infection) N39.0
[2024-04-21] MEDS: INSULIN ASPART PER UNIT CHARGE SC SCH ×2 (14:06→20:52)
--- NOTE | 2024-04-21 14:14 | Anesthesiology Consultation ---
Date of Service April 21, 2024 Assessment & Plan (1) Encounter for pre-operative examination: Chart Review Chart Review: Acceptable Risk for Surgery History Surgery Operation Date: 04/21/24 12:20 Proposed Procedures p Cystoscopy Left Retrograde Pyelogram Left Stent Placement Possible Ureteroscopy Stone Treatment - Festus Petersen MD Height/Weight Height: 5 ft 6 in Weight: 68.6 kg Allergies Allergy/AdvReac Type Severity Reaction Status Date / Time Penicillins Allergy Unknown UNKNOWN Verified 02/18/24 08:44 Sulfa (Sulfonamide Allergy Rash Verified 04/21/24 11:30 Antibiotics) Medications Home Medications Medication Instructions Recorded Confirmed Last Taken inositol 500 mg tablet 500 mg PO DAILY 07/12/19 04/21/24 Unknown loratadine 10 mg tablet (Claritin) 10 mg PO DAILY 07/12/19 04/21/24 Unknown vitamin B complex [B 1 tab PO DAILY 07/21/19 04/21/24 Unknown Complex-Vitamin B12] cholecalciferol (vitamin D3) 125 125 mcg PO DAILY 01/28/23 04/21/24 Unknown mcg (5,000 unit) capsule insulin degludec 100 unit/mL (3 15 unit (0.15 mL) subcut DAILY #15 05/28/23 04/21/24 Unknown mL) subcutaneous pen (Tresiba mL FlexTouch U-100 insulin) metformin 1,000 mg tablet 1,000 mg PO BID #180 tabs 05/28/23 04/21/24 Unknown blood-glucose sensor (FreeStyle #6 ea 09/16/23 02/18/24 Unknown Kimberli 3 Sensor device) flash glucose sensor (FreeStyle #6 ea 09/25/23 02/18/24 Unknown Kimberli 14 Day Sensor kit) semaglutide 2 mg/dose (8 mg/3 mL) 2 mg (0.75 mL) subcut ONCE #3 mL 01/28/24 04/21/24 Unknown subcutaneous pen injector (Ozempic) folic acid 400 mcg tablet 0.4 mg PO DAILY 02/06/24 04/21/24 Unknown norgestrel 0.3 mg-ethinyl 1 tab PO DAILY #84 tabs 03/19/24 04/21/24 Unknown estradiol 30 mcg tablet (Dale (28)) Active Medications Generic Name Dose Route Start Last Admin Trade Name Freq PRN Reason Stop Dose Admin Insulin Aspart 0 units 04/21/24 12:45 04/21/24 14:06 Insulin Aspart Per Unit Charge SC 05/21/24 12:44 Not Given Q6 AMY Past Medical History Medical History (Updated 04/21/24 @ 14:14 by Naseem Bradley MD) Anemia T2DM (type 2 diabetes mellitus) History of multiple miscarriages History of renal stone Migraine Hx of ovarian cyst Past Family History Family History Father Diverticulitis Hypertension Mother Rheumatoid arthritis Sister No problems noted. Denies family history of Ovarian cancer Prostate cancer Myocardial infarction Breast cancer Colorectal cancer Past Surgical History Surgical History H/O dilation and curettage History of cholecystectomy History of ovarian cystectomy History of tooth extraction Social History Smoking Status: Never smoker Do You Dip or Chew Tobacco: No Hx Alcohol Use: Yes Alcohol type: beer alcohol intake frequency: a few times a month Hx Substance Use: No Physical Exam Vital Signs Last Vital Signs Temp 36.4 C L 04/21/24 13:57 Pulse 89 04/21/24 13:57 Resp 18 04/21/24 13:57 BP 143/81 H 04/21/24 13:57 Pulse Ox 100 04/21/24 13:57 O2 Del Method Room Air 04/21/24 13:57 Testing Laboratory Results 04/21/24 09:30 04/21/24 09:30 Urine Color Yellow 04/21/24 10:28 Urine Appearance Cloudy (Clear) A 04/21/24 10:28 Urine pH 5.5 (4.5-7.5) 04/21/24 10:28 Ur Specific [place] 1.028 (1.000-1.030) 04/21/24 10:28 Urine Protein Trace (Negative) H 04/21/24 10:28 Urine Glucose (UA) Negative (Negative) 04/21/24 10:28 Urine Ketones 1+ (Negative) H 04/21/24 10:28 Urine Nitrite Negative (Negative) 04/21/24 10:28 Ur Leukocyte Esterase 2+ (Negative) H 04/21/24 10:28 Urine WBC (Auto) 21-50 /hpf (0-5) H 04/21/24 10:28 Urine RBC (Auto) 11-20 /hpf (0-2) H 04/21/24 10:28 U Hyaline Cast (Auto) 0-2 /lpf (0-2) 04/21/24 10:28 U Epithel Cells (Auto) 6-10 /hpf (0-2) H 04/21/24 10:28 Urine Bacteria (Auto) 2+ (None Seen) H 04/21/24 10:28
[2024-04-21] MEDS ORDERED: ePHEDrine sulfate 50 MG/ML AMP IV PRN (15:10)
[2024-04-21] MEDS ORDERED: HYDROmorphone INJ 2 MG/ML SYR/VIAL IV PRN (15:10)
[2024-04-21] MEDS ORDERED: ATROPINE SULFATE 0.1 MG/ML 10ML SYR IV PRN (15:10)
[2024-04-21] MEDS ORDERED: fentaNYL citrate PF 100 MCG/2 ML VIAL IV PRN (15:10)
[2024-04-21] MEDS ORDERED: ONDANSETRON INJ 2 MG/ML 2 ML VIAL IV PRN (15:10)
[2024-04-21] MEDS ORDERED: PROMETHAZINE HCL 6.25 MG in SODIUM CHLORIDE 0.9% 50 ML IV PRN (15:10)
[2024-04-21] MEDS: LACTATED RINGER'S 1,000 ML IV SCH ×2 (15:18→17:07)
--- NOTE | 2024-04-21 16:16 | Fluoroscopy Report ---
FL KUB CLINICAL HISTORY: LEFT STENT COMPARISON STUDY: CT of the abdomen and pelvis performed earlier today. FLUOROSCOPY TIME: 4 seconds. Ka,r: 0.70 mGy FLUOROSCOPIC IMAGES: 1 FINDINGS: Fluoroscopy was provided during left ureteral stent placement. The proximal aspect of the s tent projects over the left collecting system. IMPRESSION: Fluoroscopy provided during left ureteral stent placement. ACT 112: Negative or not required by law. Electronically signed by: Jose Garcia M.D. 04/21/2024 4:15 PM
[2024-04-21] MEDS: ACETAMINOPHEN 325 MG TAB PO SCH (16:57)
--- NOTE | 2024-04-21 17:02 | Anesthesiology Progress Note ---
Date of Service April 21, 2024 Anesthesia Post Procedure Vital Signs Vital Signs: Temp Pulse Pulse Pulse Resp BP BP 04/21/24 16:45 85 14 140/76 04/21/24 16:30 36.8 C 86 14 144/87 H 04/21/24 16:20 88 16 150/88 H 04/21/24 16:10 82 12 123/84 04/21/24 16:01 37 C 93 H 12 155/82 H 04/21/24 15:09 36.7 C 87 20 152/79 H 04/21/24 14:52 84 04/21/24 13:57 36.4 C L 89 18 143/81 H 04/21/24 12:24 36.5 C 98 H 19 140/77 04/21/24 12:10 67 17 129/73 04/21/24 10:22 19 04/21/24 09:12 36.8 C 92 H 19 157/96 H Pulse Ox O2 Del Method O2 Flow Rate 04/21/24 16:45 96 Room Air 04/21/24 16:30 98 Room Air 04/21/24 16:20 99 Oxymask 6 04/21/24 16:10 100 Oxymask 8 04/21/24 16:01 96 Oxymask 8 04/21/24 15:09 99 Room Air 04/21/24 14:52 04/21/24 13:57 100 Room Air 04/21/24 12:24 98 Room Air 04/21/24 12:10 98 Room Air 04/21/24 10:22 98 Room Air 04/21/24 09:12 100 Room Air Pain Intensity Left Flank: Pain Intensity: 6 Transfer of Care Handoff Completed per policy Notes Mental Status: alert / awake / arousable and participated in evaluation Patient Amnestic to Procedure: Yes Nausea / Vomiting: adequately controlled Pain: adequately controlled Airway Patency, RR, SpO2: stable & adequate BP & HR: stable & adequate Hydration State: stable & adequate Anesthetic Complications: no major complications apparent
--- NOTE | 2024-04-21 18:02 | Electrocardiogram Report ---
Test Reason : Blood Pressure : */* mmHG Vent. Rate : 82 BPM Atrial Rate : 82 BPM P-R Int : 130 ms QRS Dur : 86 ms QT Int : 382 ms P-R-T Axes : 23 24 26 degrees QTcB Int : 446 ms Normal sinus rhythm Normal ECG When compared with ECG of 03-Mar-2015 09:09, T wave amplitude has decreased in Anterior leads Confirmed by Festus Ochoa ([id number]) on 04/21/2024 6:02:28 PM Referred By: Marcy Andrea Confirmed By: Festus Ochoa
[2024-04-21] MEDS ORDERED: Nursing to Pharmacy Communication SCH ×2 (20:00→21:30)
[2024-04-21] MEDS: LANTUS PER UNIT CHARGE SQ SCH (20:57)
[2024-04-22 07:35] LABS: Basophils # (auto) 0.02 K/uL (0.00-0.20); Basophils % (auto) 0.2 %; Eosinophils # (auto) 0.05 K/uL (0.00-0.50); Eosinophils % (auto) 0.6 %; Hematocrit (blood only) 30.5 % (37.0-47.0); Hemoglobin 10.5 g/dl (12.0-16.0); Immature Granulocytes # (auto) 0.02 K/uL (0.01-0.20); Immature Granulocytes % (auto) 0.2 %; Lymphocytes # (auto) 1.65 K/uL (1.20-3.40); Lymphocytes % (auto) 20.4 %; Mean Corpuscular Hemoglobin 26.9 pg (25.0-34.0); Mean Corpuscular Hgb Conc 34.4 g/dL (32.0-36.0); Mean Platelet Volume 8.7 fL (9.4-12.4); Monocytes # (auto) 0.47 K/uL (0.11-0.59); Monocytes % (auto) 5.8 %; Neutrophils # (auto) 5.89 K/uL (1.40-6.50); Neutrophils % (auto) 72.8 %; Platelet Count 304 K/uL (130-400); RDW Coefficient of Variation 16.5 % (11.5-14.5); RDW Standard Deviation 47.4 fL (36.4-46.3); Red Blood Count 3.91 M/uL (4.20-5.40)
--- NOTE | 2024-04-22 07:39 | Hospitalist Progress Note ---
Date of Service April 22, 2024 Assessment & Plan (1) Hydroureteronephrosis: Plan: 48yo w/ prior kidney stone history (passed spontaneously ~25yrs ago), presented to the ED with progressive left-sided flank plain with radiation to the left abdomen/groin and associated increased urinary frequency UA appeared infected however renal function stable CT of the abdomen pelvis without contrast shows mild left-sided hydroureteronephrosis secondary to obstructing 4 mm distal left ureteral calculus Urology consulted IVF, flomax, NPO for OR for cysto/stent Pain control: tylenol, toradol, dilaudid prn Antiemetics as needed Strain urine s/p OR with Dr Petersen 04/22 for cystoscopy and stent placement WBC now wnl. Hgb 10.5 on continuous IVF. Remains afebrile Ceftriaxone 2gm IV continued, follow up urine cx - still pending Per urology, NO NEED FOR ONGOING ABX. Can stop after todays IV dose as should be covered for 24 hours Renal function stable, BUN/Cr 11/0.88 Diet advance as tolerated Stent removal per urology, patient would like out today Mag 1.4, 3gm IV ordered prior to dc. Iron studies w/ low ferritin but on oral supplementation and should continue with such. Alsotakes w/ vitamin C. She has outpt c-scope scheduled with GI for screening this fall in June. Resume ozempic, but wait 1-2 days to ensure adequate hydration (2) UTI (urinary tract infection): Plan: UA appears infected, patient has been experiencing increased urinary frequency over the past 48 hours No previous history of resistant UTIs, will continue ceftriaxone for now to cover both possibly infected stone and left-sided pyelonephritis due to left CVA tenderness Suspect left-sided CVA tenderness is more likely to be from her stone and left-sided hydronephrosis but cannot rule out pyelonephritis at this time Follow urine cultures (3) T2DM (type 2 diabetes mellitus): Plan: Hold metformin, ozempic Normally takes 15 units SQ degludec in the a.m., will reduce to 5 units subcu Lantus twice daily for now Start conservative regimen of CF of 50 and CR of 15 every 6 hours and serum trauma she will be eating while admitted Adjust regimen as needed (4) Microcytosis: Plan: MCV <80, appears has been low normal in system. TSH wnl in January check iron studies for completeness (5) Hypomagnesemia: Plan: Mag 1.4, 3gm IV ordered Monitor on repeat (6) LFT elevation: Plan: AST/ALT elevation on AM labs, prior wnl. TB wnl 0.4. ALP wnl 57. ?alcohol use Getting tylenol for pain, will place on hold. ?Ceftriaxone use Montitor for any RUQ discomfort- CTAP on admission w/ noted cholecystectomy status. Does note " A displaced clip is interposed between the right hemidiaphragm and dome of the liver." Monitor on repeat Admission and Anticipated Discharge Date Admission Date: April 21, 2024 Subjective Evaluated this morning, resting in bed. Feeling much better, no need for pain medications, feels well for discharge. Stone removed with cystoscopy/stent, would like removed today. Will message Urology. Getting magnesium replacement, rocephin prior to dc but no need for ongoing abx per urology after today's dose. Is on ozempic, currently 1mg. Reports didn't need to increase w/ improvement in her anemia. She is on oral iron. Iron studies w/ improvement in ferritin and to continue PO supplementation. She does have c-scope scheduled for June for screening as never done in the past. Questions/concerns addressed at this time. Results & Data Results & Data Vital Signs (Past 12 Hours) Vital Signs Temp Pulse Pulse Resp BP Pulse Ox O2 Del Method 04/22/24 02:53 36.7 C 82 16 116/77 99 Room Air 04/21/24 22:31 36.9 C 86 16 114/72 98 Room Air 04/21/24 21:58 94 H 04/21/24 20:28 37.2 C 94 H 18 118/78 98 Room Air Laboratory Results 04/22/24 04/22/24 04/22/24 Range/Units 08:21 08:02 07:03 WBC 8.10 (4.8-10.8) K/ul RBC 3.91 L (4.20-5.40) M/uL Hgb 10.5 L (12.0-16.0) g/dl Hct 30.5 L (37.0-47.0) % MCV 78.0 L (80.0-100.0) fL MCH 26.9 (25.0-34.0) pg MCHC 34.4 (32.0-36.0) g/dL RDW Std Deviation 47.4 H (36.4-46.3) fL RDW Coeff of Rohan 16.5 H (11.5-14.5) % Plt Count 304 (130-400) K/uL MPV 8.7 L (9.4-12.4) fL Immature Gran % (Auto) 0.2 % Neut % (Auto) 72.8 % Lymph % (Auto) 20.4 % [place] % (Auto) 5.8 % Eos % (Auto) 0.6 % Baso % (Auto) 0.2 % Neut # (Auto) 5.89 (1.40-6.50) K/uL Lymph # (Auto) 1.65 (1.20-3.40) K/uL [place] # (Auto) 0.47 (0.11-0.59) K/uL Eos # (Auto) 0.05 (0.00-0.50) K/uL Baso # (Auto) 0.02 (0.00-0.20) K/uL Immature Gran # (Auto) 0.02 (0.01-0.20) K/uL Sodium 139 (136-145) mmol/L Potassium 3.5 (3.5-5.1) mmol/L Chloride 108 H (98-107) mmol/L Carbon Dioxide 26 (21-32) mmol/L Anion Gap 5 (3-11) BUN 11 (6-23) mg/dl Creatinine 0.88 (0.6-1.2) mg/dl Est Cr Clr Drug Dosing 72.4 ml/min Est GFR ( Amer) 89.4 ml/min Est GFR (Non-Af Amer) 77.2 ml/min BUN/Creatinine Ratio 12.5 (10-20) Glucose 76 (70-99(Fasting)) mg/dl POC Glucose 78 (70-99) mg/dl Calcium 7.6 L (8.6-10.3) mg/dl Magnesium 1.4 L (1.7-2.4) mg/dl Iron Pending TIBC Pending Unsaturated IBC Pending Transferrin % Sat Pending Ferritin Pending Total Bilirubin 0.4 (0.2-1.0) mg/dl AST 93 H (13-39) U/L ALT 119 H (7-52) U/L Alkaline Phosphatase 57 (34-104) U/L Total Protein 5.2 L D (6.0-8.3) gm/dl Albumin 3.2 L (3.4-5.0) gm/dl Globulin 2.0 L (2.5-4.0) gm/dl Albumin/Globulin Ratio 1.6 (0.9-2) Lipase (11-82) U/L 25-OH Vitamin D Total Pending HCG, Qual (Negative) Urine Color Urine Appearance (Clear) Urine pH (4.5-7.5) Ur Specific [place] (1.000-1.030) Urine Protein (Negative) Urine Glucose (UA) (Negative) Urine Ketones (Negative) Urine Blood (Negative) Urine Nitrite (Negative) Urine Bilirubin (Negative) Urine Urobilinogen (Negative) Ur Leukocyte Esterase (Negative) Urine WBC (Auto) (0-5) /hpf Urine RBC (Auto) (0-2) /hpf U Hyaline Cast (Auto) (0-2) /lpf U Epithel Cells (Auto) (0-2) /hpf Urine Bacteria (Auto) (None Seen) Urine Mucus (None Prsent) 04/21/24 04/21/24 04/21/24 Range/Units 20:40 16:05 10:28 WBC (4.8-10.8) K/ul RBC (4.20-5.40) M/uL Hgb (12.0-16.0) g/dl Hct (37.0-47.0) % MCV (80.0-100.0) fL MCH (25.0-34.0) pg MCHC (32.0-36.0) g/dL RDW Std Deviation (36.4-46.3) fL RDW Coeff of Rohan (11.5-14.5) % Plt Count (130-400) K/uL MPV (9.4-12.4) fL Immature Gran % (Auto) % Neut % (Auto) % Lymph % (Auto) % [place] % (Auto) % Eos % (Auto) % Baso % (Auto) % Neut # (Auto) (1.40-6.50) K/uL Lymph # (Auto) (1.20-3.40) K/uL [place] # (Auto) (0.11-0.59) K/uL Eos # (Auto) (0.00-0.50) K/uL Baso # (Auto) (0.00-0.20) K/uL Immature Gran # (Auto) (0.01-0.20) K/uL Sodium (136-145) mmol/L Potassium (3.5-5.1) mmol/L Chloride (98-107) mmol/L Carbon Dioxide (21-32) mmol/L Anion Gap (3-11) BUN (6-23) mg/dl Creatinine (0.6-1.2) mg/dl Est Cr Clr Drug Dosing ml/min Est GFR ( Amer) ml/min Est GFR (Non-Af Amer) ml/min BUN/Creatinine Ratio (10-20) Glucose (70-99(Fasting)) mg/dl POC Glucose 124 H 82 (70-99) mg/dl Calcium (8.6-10.3) mg/dl Magnesium (1.7-2.4) mg/dl Iron TIBC Unsaturated IBC Transferrin % Sat Ferritin Total Bilirubin (0.2-1.0) mg/dl AST (13-39) U/L ALT (7-52) U/L Alkaline Phosphatase (34-104) U/L Total Protein (6.0-8.3) gm/dl Albumin (3.4-5.0) gm/dl Globulin (2.5-4.0) gm/dl Albumin/Globulin Ratio (0.9-2) Lipase (11-82) U/L 25-OH Vitamin D Total HCG, Qual (Negative) Urine Color Yellow Urine Appearance Cloudy A (Clear) Urine pH 5.5 (4.5-7.5) Ur Specific [place] 1.028 (1.000-1.030) Urine Protein Trace H (Negative) Urine Glucose (UA) Negative (Negative) Urine Ketones 1+ H (Negative) Urine Blood 3+ H (Negative) Urine Nitrite Negative (Negative) Urine Bilirubin Negative (Negative) Urine Urobilinogen Negative (Negative) Ur Leukocyte Esterase 2+ H (Negative) Urine WBC (Auto) 21-50 H (0-5) /hpf Urine RBC (Auto) 11-20 H (0-2) /hpf U Hyaline Cast (Auto) 0-2 (0-2) /lpf U Epithel Cells (Auto) 6-10 H (0-2) /hpf Urine Bacteria (Auto) 2+ H (None Seen) Urine Mucus Present A (None Prsent) 04/21/24 Range/Units 09:30 WBC 11.95 H (4.8-10.8) K/ul RBC 4.82 (4.20-5.40) M/uL Hgb 12.8 (12.0-16.0) g/dl Hct 38.6 (37.0-47.0) % MCV 80.1 (80.0-100.0) fL MCH 26.6 (25.0-34.0) pg MCHC 33.2 (32.0-36.0) g/dL RDW Std Deviation 47.5 H (36.4-46.3) fL RDW Coeff of Rohan 16.2 H (11.5-14.5) % Plt Count 382 (130-400) K/uL MPV 8.7 L (9.4-12.4) fL Immature Gran % (Auto) 0.3 % Neut % (Auto) 77.4 % Lymph % (Auto) 17.0 % [place] % (Auto) 4.7 % Eos % (Auto) 0.3 % Baso % (Auto) 0.3 % Neut # (Auto) 9.26 H (1.40-6.50) K/uL Lymph # (Auto) 2.03 (1.20-3.40) K/uL [place] # (Auto) 0.56 (0.11-0.59) K/uL Eos # (Auto) 0.03 (0.00-0.50) K/uL Baso # (Auto) 0.04 (0.00-0.20) K/uL Immature Gran # (Auto) 0.03 (0.01-0.20) K/uL Sodium 134 L (136-145) mmol/L Potassium 3.7 (3.5-5.1) mmol/L Chloride 101 (98-107) mmol/L Carbon Dioxide 21 (21-32) mmol/L Anion Gap 12 H (3-11) BUN 13 (6-23) mg/dl Creatinine 0.96 (0.6-1.2) mg/dl Est Cr Clr Drug Dosing 66.4 ml/min Est GFR ( Amer) 80.5 ml/min Est GFR (Non-Af Amer) 69.4 ml/min BUN/Creatinine Ratio 13.5 (10-20) Glucose 93 (70-99(Fasting)) mg/dl POC Glucose (70-99) mg/dl Calcium 8.8 (8.6-10.3) mg/dl Magnesium (1.7-2.4) mg/dl Iron TIBC Unsaturated IBC Transferrin % Sat Ferritin Total Bilirubin 0.3 (0.2-1.0) mg/dl AST 13 (13-39) U/L ALT 10 (7-52) U/L Alkaline Phosphatase 39 (34-104) U/L Total Protein 7.0 (6.0-8.3) gm/dl Albumin 4.2 (3.4-5.0) gm/dl Globulin 2.8 (2.5-4.0) gm/dl Albumin/Globulin Ratio 1.5 (0.9-2) Lipase 28 (11-82) U/L 25-OH Vitamin D Total HCG, Qual Negative (Negative) Urine Color Urine Appearance (Clear) Urine pH (4.5-7.5) Ur Specific [place] (1.000-1.030) Urine Protein (Negative) Urine Glucose (UA) (Negative) Urine Ketones (Negative) Urine Blood (Negative) Urine Nitrite (Negative) Urine Bilirubin (Negative) Urine Urobilinogen (Negative) Ur Leukocyte Esterase (Negative) Urine WBC (Auto) (0-5) /hpf Urine RBC (Auto) (0-2) /hpf U Hyaline Cast (Auto) (0-2) /lpf U Epithel Cells (Auto) (0-2) /hpf Urine Bacteria (Auto) (None Seen) Urine Mucus (None Prsent) Diagnostic Findings Abdomen Fluoroscopy 04/21/24 00:00 FL KUB CLINICAL HISTORY: LEFT STENT COMPARISON STUDY: CT of the abdomen and pelvis performed earlier today. FLUOROSCOPY TIME: 4 seconds. kim Dyer: 0.70 mGy FLUOROSCOPIC IMAGES: 1 FINDINGS: Fluoroscopy was provided during left ureteral stent placement. The proximal aspect of the stent projects over the left collecting system. IMPRESSION: Fluoroscopy provided during left ureteral stent placement. ACT 112: Negative or not required by law. Electronically signed by: Jose Garcia M.D. 04/21/2024 4:15 PM Abdomen/Pelvis CT 04/21/24 09:[address] WITHOUT CONTRAST CT DOSE: 831.21 mGy.cm HISTORY: Acute left-sided flank pain left flank pain TECHNIQUE: Multiaxial CT images of the abdomen and pelvis were performed without contrast. A dose lowering technique was utilized adhering to the principles of ALARA. COMPARISON STUDY: ULTRASOUND 02/11/2024 FINDINGS: Clear lung bases. No free air. Unremarkable spleen, pancreas and adrenal glands. Cholecystectomy. A displaced clip is interposed between the right hemidiaphragm and dome of the liver. Unremarkable right kidney. There is mild left-sided hydroureteronephrosis secondary to a 4 mm obstructing calculus of the distal left ureter a few centimeters upstream to the ureterovesicular junction. Decompressed urinary bladder. 4.2 cm cystic focus of the left adnexum. Mild atherosclerosis of the iliac bifurcation. No lymphadenopathy. There is no bowel obstruction or bowel wall thickening. Trace free pelvic fluid. Noninflamed appendix. Unremarkable soft tissues. No acute fracture. IMPRESSION: 1. Mild left-sided hydroureteronephrosis secondary to an obstructing 4 mm distal left ureteral calculus. 2. No bowel obstruction or bowel wall thickening. 3. Cholecystectomy. ACT 112: Negative or not required by law. The above report was generated using voice recognition software. It may contain grammatical, syntax or spelling errors. Electronically signed by: Dimitris Garza M.D. 04/21/2024 10:21 AM PG Care Time/CCT Total # of Minutes Spent Total Time Spent with Patient: Total time spent is greater than 50% in coordination of care (as documented) at patient's floor/unit and/or counseling patient: Coding Diagnoses Hydroureteronephrosis N13.30 UTI (urinary tract infection) N39.0 Type 2 diabetes mellitus without complication, with long-term current use of insulin E11.9; Z79.4 Diabetes mellitus complication status: without complication Diabetes mellitus fdc insulin use: with fdc use Microcytosis R71.8 Hypomagnesemia E83.42 LFT elevation R79.89 (3) T2DM (type 2 diabetes mellitus) Diabetes mellitus complication status: without complication 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
[2024-04-22] MEDS ORDERED: PHENAZOPYRIDINE HCL 100 MG TAB PO PRN (07:44)
[2024-04-22 07:54] LABS: Albumin Globulin Ratio 1.6 (0.9-2); Albumin Level 3.2 gm/dl (3.4-5.0); BUN Creatinine Ratio 12.5 (10-20); Bilirubin,Total 0.4 mg/dl (0.2-1.0); Calcium 7.6 mg/dl (8.6-10.3); Creatinine Clr Calc Pharmacy 72.4 ml/min; Est GFR (African American) 89.4 ml/min; Est GFR (Non-African American) 77.2 ml/min; Magnesium 1.4 mg/dl (1.7-2.4); Potassium 3.5 mmol/L (3.5-5.1); Total Protein 5.2 gm/dl (6.0-8.3)
--- NOTE | 2024-04-22 09:02 | Operative Report ---
PG Post Operative Report Pre & Post Diagnosis Operation Date: 04/21/24 12:20 Pre-Op Diagnosis: Left Hydroureteronphrosis Post-Op Diagnosis: Left Hydroureteronphrosis I identified the patient and participated in the time-out.: Yes Procedure Operation Date: 04/21/24 12:20 Actual Procedures p Cystoscopy, Left Stent Placement, Ureteroscopy Stone Treatment(Left) - Festus Petersen MD Surgeon Festus Petersen MD Lna None Estimated Blood Loss 0 Findings Consistent with Post-Op Diagnosis Specimens Stone for chemical analysis Description of Procedure The patient was identified in the preoperative holding area, appropriate informed consents were reviewed and completed and the patient was transferred to the operative suite. Upon arrival, appropriate antibiotics and anesthesia were administered and the patient was placed in dorsal lithotomy position and prepped and draped in sterile fashion. Given case to pass a 21 [place] cystoscope with 30 degree lens and visual concentrator operator. Inspection revealed a healthy-appearing urethra and bladder. There were no stones within the bladder. After full inspection I turned my attention to the left ureteral orifice and cannulated with a sensor wire and a 5 [place] open-ended catheter. I then guided a semirigid ureteroscope into the left ureter alongside the wire. There was a stone just through the intramural portion of the ureter. I was able to grasp this with the basket and extracted. Of note, the stone was not round but an elongated shape and was initially wedged perpendicular to the ureter but I was able to turn it parallel to the ureter to make extraction much more simple. I then reentered the ureter and confirmed that the ureter itself was clear before placing a 6 [place] by 24 cm double-J stent. A string was left attached to the distal aspect of the stent. She was reversed of anesthesia and taken the recovery room in stable condition. The stone was passed off the table for chemical analysis. I attest to the content of the Intraoperative Record and any orders documented therein. Any exceptions are noted below.
[2024-04-22 09:42] LABS: Ferritin 20.9 ng/ml (8-388)
[2024-04-22] MEDS: oxyBUTYnin chloride 5 MG TAB PO PRN (10:02)
[2024-04-22] MEDS: MAGNESIUM SULFATE / D5W 1 GM/100 ML BAG IV SCH (10:03)
--- NOTE | 2024-04-22 10:10 | Discharge Summary ---
Discharge Summary Date of Service April 22, 2024 Principal Dx & Hospital Course #1 = Principal Diagnosis (1) Hydroureteronephrosis: 48yo w/ prior kidney stone history (passed spontaneously ~25yrs ago), presented to the ED with progressive left-sided flank plain with radiation to the left abdomen/groin and associated increased urinary frequency UA appeared infected however renal function stable CT of the abdomen pelvis without contrast shows mild left-sided hydroureteronephrosis secondary to obstructing 4 mm distal left ureteral calculus Urology consulted IVF, flomax, pain control and made NPO for possible OR with Dr Petersen. s/p OR with Dr Petersen 04/22 for cystoscopy and stent placement with REMOVAL of stone WBC now wnl. Hgb 10.5 on continuous IVF. Remains afebrile Ceftriaxone 2gm IV ordered while inpatient. and DISCUSSED WITH UROLOGY who DID NOT feel bladder/infection and NO NEED for ongoing antibiotics at discharge. Was provided additional dose of Ceftriaxone IV prior to dc which should cover for 24 hours. Monitor for any fevers/sx to return. Renal function remained stable. WBC normalized.Stent removal per urology No further pain, tolerating diet and stable/wanting to go home. Urology follow up outpatient Other issues: Electrolyte abn: Mag 1.4, 3gm IV ordered prior to dc Iron studies w/ low ferritin but on oral supplementation and should continue with such. Also takes w/ vitamin C. She has outpt c-scope scheduled with GI for screening this fall in June. DM II, on 1mg presently, did not need to go up once anemia corrected. Instructed to wait 1-2 days prior to resuming as next dose due in next 24-48hours to ensure adequate hydration (2) UTI (urinary tract infection): UA appeared infected however as above discussed w/ urology who felt examination of bladder during OR was NOT infected appearing and no need for ongoing abx at discharge and should be covered w/ the rocephin. Had been given IV abx 04/21, 04/22 and coverage for 24 hours as above Urine cx pending at time of discharge. No further CVA tenderness since stone removal and had not been febrile, leukocytosis RESOLVED (3) T2DM (type 2 diabetes mellitus): Home meds held on admission and used sliding scale with basal/bolus Resume home metformin at discharge as well as insulin. As above, recs to hold off ozempic for another 48 hours to prevent dehydration (4) Microcytosis: MCV <80, appears has been low normal in system. TSH wnl in January Iron studies obtained, iron normal, trans % sat normal but FERRITIN 20.9 which is IMPROVED from 9 and 10 previously and reports has been on ORAL supplementation with vitamin C as above. No IV Venofer, to continue PO supplementation. F/u PCP and possible increase BID dosing if tolerated. No bleeding reported. Of note, no prior c-scope but patient reports having this arranged for later this year -- encouraged having this done for screening purposes/further eval underlying anemia (5) Hypomagnesemia: Mag 1.4, 3gm IV ordered and to infuse prior to discharge Plan discharge home after IV magnesium and ceftriaxone IV infusion completed planned stent removal by urology prior to discharge outpatient f/u PCP and Urology Notes For Next Care Provider Encourage follow up for c-scope for ongoing VARGAS. Consideration for infusion vs increase PO supplementation to BID if tolerated (cautious w/ constipation/ozempic use) Medication Changes From Visit Hold ozempic 24-48hours from next dose, then resume if keeping up w/ hydration Admission HPI Per Admitting Provider Pippa is a 48-year-old female with a past medical history significant for DM type II, dyslipidemia, and previous kidney stones who presented to [facility] ED on 04/21/2024 with progressive left-sided flank pain radiating to the left groin and increased urinary frequency. She remained stable in the ED. Labs were significant for leukocytosis of 11 with neutrophil predominance of 9, anion gap of 12 with bicarb within normal limits, and UA with cloudy appearance, trace protein, 1+ ketones, 3+ blood, 2+ leukocyte esterase, 20-50 WBC, 11-20 RBC, 6-10 epithelial cells, 2+ bacteria. CT of the abdomen pelvis without contrast notes mild left-sided hydroureteronephrosis secondary to an obstructing 4 mm distal left ureteral calculus. Otherwise CT was without other acute findings. While in the ED the patient received 1 L normal saline, 0.4 mg tamsulosin, 2 doses of 4 mg IV morphine, 15 mg IV Toradol, 0.5 mg IV Dilaudid, 1 g IV Tylenol, a dose of ceftriaxone, 2 doses 4 mg IV Zofran, and 12.5 mg promethazine without significant improvement of symptoms. Patient was lying in bed on her right side in the position at the time of my exam. Confirms that her symptoms started approximate 48 hours ago with left lower abdomen/groin pain has progressed to left-sided flank pain as well with increased urinary frequency. Did have nausea but without vomiting prior to arrival to the ED. Confirm she has a previous history of kidney stones but is normally been able to pass them on her own. Symptoms are currently under control if she remains still, she notices symptoms progressed with ambulation to and from the bathroom. No recent fever or chills, chest pain, shortness of breath, cough, hematemesis, diarrhea, or recent trauma. Took 3 tabs of 200 mg ibuprofen around midnight early this morning prior to ED arrival. Please refer to Dr. Montaño's attestation for any changes to the treatment plan Admission Exam Per Admitting Provider Physical Exam: General: In no acute distress, stated age, ill-appearing but nontoxic HEENT: Normocephalic, atraumatic, no scleral icterus, pupils around round, symmetrical, and reactive to light, dry mucus membranes, trachea midline, no thyromegaly Chest/Pulm: No respiratory distress, symmetrical chest expansion, clear breath sounds throughout Cardiac: RRR, no murmurs noted Abdomen: Negative for ascites and bruising, normoactive bowel sounds, soft, minimally tender to palpation left lower quadrant otherwise nontender : Positive left CVA tenderness negative right Musculoskeletal: Symmetrical and without signs of acute trauma, upper and lower extremities with full ROM, no atrophy, spasticity, or flaccidity Extremities: Radial, dorsalis pedis, and posterior tibial pulses are intact and symmetrical, no edema noted in the BL LE's Skin: Warm, dry, no rashes , lesions, or scars noted Neuro: Alert and oriented to person, place, month, year, and president, no focal defects, no tremors noted Psych: No acute distress, fatigued but otherwise calm and cooperative during the exam Discharge Exam General 48yo female sitting up in bed, NAD, reported feeling well/wanting to go home HEENT: head atraumatic, normocephalic, mmm, trachea midline Resp: even/unlabored, no w/c/r, on room air CV: RRR, no mrg, no pitting edema GI: +BS, soft/NT : no sadler, no further CVA tenderness MSK/Neuro: nonfocal, CN intact grossly, answering questions appropriately Psych: AOx3, cooperative with exam Discharge Plan Discharge Items Patient Disposition: Home - Self-Care Reason For Visit: left hydroureteronphrosis Discharge Diagnosis: Urinary tract infection, kidney stone Condition on Discharge: Good Goals: You have been hospitalized for an urgent problem which required surgery. During your stay at [facility], we have made an effort to correct the problem that brought you to the hospital while keeping you as comfortable as possible. Surgery and medications were used to bring your condition under control and your discharge instructions will include directions for any medications you should take after leaving the hospital. Please make sure to follow the advice of your surgeon regarding follow up with the surgeon and with your primary care provider. Activity: As commented below Non-emergency contact: Primary Care Provider and Urologist Call non-emergency contact if: you have any medication questions, your symptoms worsen, your pain is not controlled, your pain is concerning for you and you have a fever Follow-up/Referrals: Candice Amin MD [Primary Care Provider] - 04/29/24 11:00 am Diet: Carb Consistent or DM2 and Heart Healthy Addtl Attending Provider Instructions: You have been hospitalized for flank/abdominal pain and found to have obstructing kidney stone. You were treated with IV fluids, pain control and Urology was consulted for cystoscopy and stent placement (and removal of stone). As discussed with Urology, no further antibiotics are needed at discharge as bladder did not appear infected. Your magnesium was low and replacement was ordered. Your iron studies showed low ferritin but improved from prior. Please continue oral supplementation and follow up with primary care about possible increase vs infusion and continue your colonoscopy screening as already arranged for evaluation for anemia. Please stay well hydrated and push oral fluids. Wait a day or two before resuming your home ozempic to ensure no issues. Please follow up with primary care in the next 7-10 days to monitor your progress after discharge. Please return to the ER with any increased, pain, fever, inability to keep up with oral hydration, or for any other symptoms concerning for you. It has been a pleasure being a part of the medical team providing for you while you have been in the hospital. Take care! Addtl Sampling Theory Teacher Provider Instructions: urology office will contact you to arrange a follow-up visit. Please call the urology office at [phone] with any questions, concerns or need to reschedule appointments for any reason. We are happy to assist you. Pending Studies at Discharge: Yes Studies:: urine culture Stand-Alone Forms: [facility], Smoking Cessation Medications and DC Order Prescriptions: Continued insulin degludec [Tresiba FlexTouch U-100] 100 unit/mL (3 mL) insulin pen 15 unit subcut DAILY Qty: 15 3RF metformin 1,000 mg tablet 1,000 mg PO BID Qty: 180 3RF Cryselle (28) 0.3-30 mg-mcg tablet 1 tab PO DAILY Qty: 84 0RF folic acid 400 mcg tablet 0.4 mg PO DAILY Ozempic 2 mg/dose (8 mg/3 mL) pen injector 2 mg subcut ONCE Qty: 3 5RF Rx Instructions: Inject 2 mg into the abdomen once a week. cholecalciferol (vitamin D3) 125 mcg (5,000 unit) capsule 125 mcg PO DAILY loratadine [Claritin] 10 mg tablet 10 mg PO DAILY inositol 500 mg tablet 500 mg PO DAILY vitamin B complex 1 tab PO DAILY No Action (DME) FreeStyle Kimberli 3 Sensor Device See Rx Instructions .Route Qty: 6 3RF Rx Instructions: change sensor every 14 days (DME) FreeStyle Kimberli 14 Day Sensor Kit See Rx Instructions .ROUTE .MEDSUPPLY Qty: 6 3RF Rx Instructions: Change sensor every 14 days Discharge Orders: Discharge Order (Routine); Ordered 04/22/24 Ordered By: Natividad Corey Admission Data Admit Date/Time: 04/21/24 12:34 Attending Provider: Sanya Peter Admit Provider: Moose Montaño Primary Care Provider: Candice Amin Other Providers: Moose Montaño; Festus Petersen Hospital Stay Data Consultations 04/21/24 12:36 ED Decision to Admit Stat 04/21/24 12:50 Consult Urology Routine Procedures Performed Operation Date: 04/21/24 12:20 Actual Procedures p Cystoscopy, Left Stent Placement, Ureteroscopy Stone Treatment(Left) - Festus Petersen MD Diagnostic Imagining Performed Abdomen Fluoroscopy 04/21/24 00:00 FL KUB CLINICAL HISTORY: LEFT STENT COMPARISON STUDY: CT of the abdomen and pelvis performed earlier today. FLUOROSCOPY TIME: 4 seconds. Ka,r: 0.70 mGy FLUOROSCOPIC IMAGES: 1 FINDINGS: Fluoroscopy was provided during left ureteral stent placement. The proximal aspect of the stent projects over the left collecting system. IMPRESSION: Fluoroscopy provided during left ureteral stent placement. ACT 112: Negative or not required by law. Electronically signed by: Jose Garcia M.D. 04/21/2024 4:15 PM Abdomen/Pelvis CT 04/21/24 09:[address] WITHOUT CONTRAST CT DOSE: 831.21 mGy.cm HISTORY: Acute left-sided flank pain left flank pain TECHNIQUE: Multiaxial CT images of the abdomen and pelvis were performed without contrast. A dose lowering technique was utilized adhering to the principles of ALARA. COMPARISON STUDY: ULTRASOUND 02/11/2024 FINDINGS: Clear lung bases. No free air. Unremarkable spleen, pancreas and adrenal glands. Cholecystectomy. A displaced clip is interposed between the right hemidiaphragm and dome of the liver. Unremarkable right kidney. There is mild left-sided hydroureteronephrosis secondary to a 4 mm obstructing calculus of the distal left ureter a few centimeters upstream to the ureterovesicular junction. Decompressed urinary bladder. 4.2 cm cystic focus of the left adnexum. Mild atherosclerosis of the iliac bifurcation. No lymphadenopathy. There is no bowel obstruction or bowel wall thickening. Trace free pelvic fluid. Noninflamed appendix. Unremarkable soft tissues. No acute fracture. IMPRESSION: 1. Mild left-sided hydroureteronephrosis secondary to an obstructing 4 mm distal left ureteral calculus. 2. No bowel obstruction or bowel wall thickening. 3. Cholecystectomy. ACT 112: Negative or not required by law. The above report was generated using voice recognition software. It may contain grammatical, syntax or spelling errors. Electronically signed by: Dimitris Garza M.D. 04/21/2024 10:21 AM Discharge Instructions Given to Patient (Per Discharging Provider) You have been hospitalized for flank/abdominal pain and found to have obstructing kidney stone. You were treated with IV fluids, pain control and Urology was consulted for cystoscopy and stent placement (and removal of stone). As discussed with Urology, no further antibiotics are needed at discharge as bladder did not appear infected. Your magnesium was low and replacement was ordered. Your iron studies showed low ferritin but improved from prior. Please continue oral supplementation and follow up with primary care about possible increase vs infusion and continue your colonoscopy screening as already arranged for evaluation for anemia. Please stay well hydrated and push oral fluids. Wait a day or two before resuming your home ozempic to ensure no issues. Please follow up with primary care in the next 7-10 days to monitor your progress after discharge. Please return to the ER with any increased, pain, fever, inability to keep up with oral hydration, or for any other symptoms concerning for you. It has been a pleasure being a part of the medical team providing for you while you have been in the hospital. Take care! Supervising Physician Co-Signing Physician Notes The patient was not seen by me. The chart was reviewed. Case discussed with ELENO Slaughter. Agree with assessment and plan Total Time Total Time Spent Total Time Spent (In Minutes): 40 Coding Level of Care Code 59652 INP/OBS DISCH >30 MIN Diagnoses Hydroureteronephrosis N13.30 UTI (urinary tract infection) N39.0 Type 2 diabetes mellitus without complication, with long-term current use of insulin E11.9; Z79.4 Diabetes mellitus complication status: without complication Diabetes mellitus emt intermediate insulin use: with assisted use Microcytosis R71.8 Hypomagnesemia E83.42
--- NOTE | 2024-04-22 11:25 | Urology Progress Note ---
Date of Service April 22, 2024 Assessment & Plan (1) Acute flank pain: (2) Left ureteral calculus: (3) Hydronephrosis: Plan - POD#1 s/p Cystoscopy, Left Stent Placement, Ureteroscopy Stone Treatment - Feeling well, tolerating the stent with minimal bother. - Afebrile with stable vitals. - Labs today show no leukocytosis and normal renal function. - Urine culture prelim group B beta strep. She is on Ceftriaxone. - Tethered stent removed at bedside this morning without difficulty. Pt tolerated well. - Ok to d/c from perspective when medically stable. - Will arrange outpatient follow-up with our service. - Patient agreeable to plan, all questions were answered. - Urology will sign-off. Please call with any further questions or concerns. Admission and Anticipated Discharge Date Admission Date: April 21, 2024 Subjective Pt seen at bedside this AM Awake, resting in bed on arrival No acute distress Tolerating the stent with minimal bother She reports some mild left flank discomfort Denies f/c/n/v Voiding without issue Review of Systems Constitutional: as per Subjective / HPI Gastrointestinal: as per Subjective / HPI Genitourinary: as per Subjective / HPI Physical Exam Constitutional: no acute distress Respiratory: no respiratory distress and no labored breathing Skin: No visible rashes or lesions to exposed skin areas Neurologic: moves all extremities and awake Psychiatric: A+Ox3, euthymic affect Results & Data Vital Signs (Past 12 Hours) Vital Signs Temp Pulse Pulse Resp BP Pulse Ox O2 Del Method 04/22/24 07:37 36.9 C 81 20 109/74 100 Room Air 04/22/24 02:53 36.7 C 82 16 116/77 99 Room Air PG Care Time/CCT Total # of Minutes Spent Total Time Spent with Patient: Total time spent is greater than 50% in coordination of care (as documented) at patient's floor/unit and/or counseling patient: Coding Level of Care Code 09324 SUB INP/OBS CARE 2/35MIN Diagnoses Acute flank pain R10.9 Left ureteral calculus N20.1 Hydronephrosis N13.2 Hydronephrosis type: with renal calculous obstruction (3) Hydronephrosis Hydronephrosis type: with renal calculous obstruction Qualified Code(s): N13.2 - Hydronephrosis with renal and ureteral calculous obstruction
[2024-04-22 11:30] VITALS: BP 125/80; RESP 18; TEMP 98.6; O2SAT 99
[2024-04-22] MEDS: TAMSULOSIN HCL 0.4 MG CAP PO SCH (12:39)
[2024-04-22 15:19] VITALS: PULSE 82
[2024-04-22] MEDS: cefTRIAXone SODIUM 2,000 MG/50 ML BAG IV SCH (15:21)
--- NOTE | 2024-04-22 15:31 | Communication Note ---
Date of Service: April 22, 2024 IV site went bad prior to discharge and to avoid another IV placement as stable for discharge and ready. Orders for Cipro 500mg PO x 1 prior to discharge and sent another 3 doses for 2 more days per discussion with supervising provider however per urology did not feel infection/need for ongoing abx. F/u PCP/urology at discharge
[2024-04-22] MEDS: CIPROFLOXACIN 500 MG TAB PO STA (15:56)
== END 2024-04-22 16:04 | disposition home or self-care (01) | DRG 661 ==
LOC: ED 09:09 → SUATTDRO 12:34 → 2N 12:34